=== PATIENT | female | born 2000 | race Two or more races ===

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

== ENCOUNTER 2021-08-01 21:00 | Emergency (ER) | payer BC, OTHER | END 2021-08-01 23:35 | disposition left against medical advice (07) | LOC: ER 21:00 | DX: R10.9 Unspecified abdominal pain (principal); Z53.21 Procedure and treatment not carried out due to patient leaving prior to being seen by health care provider ==